=== PATIENT | female | born 1965 | race Caucasian/White ===

== ENCOUNTER 2020-11-24 15:06 | Outpatient (CLI) | payer BC | END 2020-11-24 15:07 | disposition home or self-care (01) | LOC: CSHMRI 15:06 | PROVIDERS: ATTEND Otolaryngology Plastic Surgery within the Head & Neck | DX: H90.5 Unspecified sensorineural hearing loss (principal); J32.9 Chronic sinusitis, unspecified | CPT/HCPCS: 70553 ==